=== PATIENT | male | born 1940 | race Caucasian/White ===

== ENCOUNTER 2019-02-27 05:39 | Emergency (ER) | payer OTHER, MEDICARE ==
[~2019-02-27] VITALS: Ht 177.8 cm; Wt 88.5 kg
[2019-02-27 05:39] VITALS: BP_SYST 138
[~2019-02-27 05:39] MED LIST: ATOR10TA68 PO; LISI-600 PO; RIVA20TA PO; SITA50TA3 PO; SOTA80TA PO
[2019-02-27] MEDS ORDERED: SILVER NITRATE APPLICATOR 1 STICK STICK..EA. TP ONE (06:20)
[2019-02-27 06:54] VITALS: BP_SYST 132
== END 2019-02-27 06:54 | disposition home or self-care (01) ==
LOC: SED 05:39
DX: R04.0 Epistaxis (principal); I10 Essential (primary) hypertension; I48.91 Unspecified atrial fibrillation; E11.9 Type 2 diabetes mellitus without complications
CPT/HCPCS: 99284

== ENCOUNTER 2022-04-26 08:48 | Inpatient (IN) | payer OTHER, MEDICARE ==
[~2022-04-26] VITALS: Ht 180.3 cm; Wt 81.2 kg
[~2022-04-26 08:48] MED LIST changes: -LISI-600 PO; +LISI20TA30 PO
[2022-04-26 08:52] VITALS: BP_SYST 153
[2022-04-26] MEDS ORDERED: NEU300 PO (09:08)
[2022-04-26] MEDS ORDERED: LEVO100T9 PO (09:08)
[2022-04-26] MEDS ORDERED: INSU100V38 SQ (09:08)
[2022-04-26] MEDS ORDERED: LENV14CA PO (09:08)
[2022-04-26] MEDS ORDERED: MECLIZINE HCL 25 MG TABLET (ANITVERT) PO ONE (09:45)
[2022-04-26 10:03] LABS: BASOPHILS # (AUTO) 0.1 K/uL (0.0-0.2); BASOPHILS % (AUTO) 2.9 % (0.0-2.0); EOSINOPHILS # (AUTO) 0.1 K/uL (0.0-0.4); EOSINOPHILS % (AUTO) 3.2 % (0.0-4.0); HEMATOCRIT 36.2 % (36-54); LYMPHOCYTES # (AUTO) 0.3 K/uL (1.0-5.5); MEAN CORPUSCULAR VOLUME 83 fL (79.0-98.0); MONOCYTES # (AUTO) 0.3 K/uL (0.0-1.0); MONOCYTES % (AUTO) 8.4 % (1.7-9.3); NEUTROPHILS # (AUTO) 2.7 K/uL (1.8-7.7); NEUTROPHILS % (AUTO) 77.5 % (40.0-70.0); PLATELET COUNT (AUTO) 131 K/uL (130-430); RED BLOOD CELL COUNT(AUTO) 4.38 MIL/uL (4.2-6.2); RED CELL DISTRIBUTION WIDTH 15.2 % (9.0-15.0); WHITE BLOOD COUNT (AUTO) 3.4 K/uL (4.8-10.8)
[2022-04-26 10:19] LABS: ANION GAP 6 (5-15); CHLORIDE 103 mmol/L (98-107); CREATININE 1.27 mg/dL (0.55-1.30); GLUCOSE 141 mg/dL (70-99); POTASSIUM 4.3 mmol/L (3.5-5.1); UREA NITROGEN, BLOOD 21 mg/dL (8-21)
[2022-04-26 10:25] LABS: INR 1.1 (0.80-1.20); PROTHROMBIN TIME 11.2 SECS (9.5-12.5)
[2022-04-26 10:34] LABS: ALANINE AMINOTRANSFERASE 13 U/L (12-78); ALBUMIN 3.6 g/dL (3.4-4.8); ASPARTATE AMINOTRANSFERASE 11 U/L (10-37); THYROID STIMULATING HORMONE 0.47 uIu/mL (0.36-3.74); TOTAL BILIRUBIN 0.8 mg/dL (0.0-1.0)
[2022-04-26 12:14] LABS: BILIRUBIN,URINE NEGATIVE (NEGATIVE); BLOOD, URINE 1+ (NEGATIVE); CLARITY/URINE CLEAR (CLEAR); COLOR,URINE YELLOW (YELLOW); GLUCOSE,URINE NEGATIVE (NEGATIVE); KETONES,URINE NEGATIVE (NEGATIVE); LEUKOCYTE ESTERASE ,URINE NEGATIVE (NEGATIVE); NITRITE, URINE NEGATIVE (NEGATIVE); PROTEIN URINE NEGATIVE (NEGATIVE); UROBILINOGEN,URINE 0.2 (0.2-1.0)
[2022-04-26 12:29] LABS: WBC,URINE 0-3 /HPF (0-3)
[2022-04-26 12:30] LABS: BACTERIA,URINE None Seen /HPF (None Seen); MUCUS,URINE 1+ /LPF (None Seen)
[2022-04-26] MEDS ORDERED: MAGNESIUM CITRATE 300 ML ORAL SOLUTION PO ONE (12:30)
[2022-04-26] MEDS ORDERED: GABAPENTIN 300 MG CAPSULE PO PRN (17:00)
[2022-04-26] MEDS ORDERED: INSULIN REGULAR, HUMAN 100 UNITS/ML, 3 ML VIAL (humuLIN R) SUBCUT PRN (17:15)
[2022-04-26] MEDS ORDERED: INSULIN GLARGINE 100 UNITS/ML, 10 ML VIAL SUBCUT SCH (18:00)
[2022-04-26] MEDS ORDERED: SOTALOL HCL 80 MG TABLET PO SCH (21:00)
[2022-04-27] MEDS ORDERED: RIVAROXABAN 10 MG TABLET PO SCH (09:00)
[2022-04-27] MEDS ORDERED: LENVATINIB MESYLATE PO SCH (09:00)
[2022-04-27] MEDS ORDERED: LEVOTHYROXINE SODIUM 0.1 MG TABLET PO SCH (09:00)
[2022-04-27] MEDS ORDERED: ATORVASTATIN 10 MG TABLET PO SCH (09:00)
[2022-04-27] MEDS ORDERED: lisinopriL 20 MG TABLET PO SCH (09:00)
[2022-04-28] MEDS ORDERED: LENVATINIB MESYLATE 20 MG PO SCH (09:00)
== END 2022-04-28 12:55 | disposition left against medical advice (07) | DRG 93 ==
LOC: SED 08:48 → STU 11:53
PROVIDERS: ADMIT Family Medicine; ATTEND Family Medicine
DX: R27.8 Other lack of coordination (principal); E87.8 Other disorders of electrolyte and fluid balance, not elsewhere classified; I48.91 Unspecified atrial fibrillation; E78.5 Hyperlipidemia, unspecified; Z95.0 Presence of cardiac pacemaker; Z85.850 Personal history of malignant neoplasm of thyroid; Z88.8 Allergy status to other drugs, medicaments and biological substances; Z79.899 Other long term (current) drug therapy
CPT/HCPCS: 36415; 70450-TC; 71045; 76376; 80053; 81000; 82962; 84443; 84484; 85025; 85610-TC; 85730-TC; 86886; 86900; 86901; 93005; 99285; G0378; J1815; J8597